=== PATIENT | male | born 1975 | race Two or more races ===

== ENCOUNTER 2021-10-12 18:32 | Emergency (ER) | payer OTHER ==
[~2021-10-12] VITALS: Ht 177.8 cm; Wt 158.8 kg
[2021-10-12] MEDS ORDERED: IRBESARTAN300 MG PO (19:02)
[2021-10-12] MEDS ORDERED: GLIMEPIRIDE4 MG (19:03)
[2021-10-12] MEDS ORDERED: SIMVASTATIN20 MG PO (19:03)
[2021-10-12] MEDS ORDERED: ADALAT CC30 MG PO (19:03)
[2021-10-12] MEDS ORDERED: HORIZANT600 MG PO (19:04)
[2021-10-12] MEDS ORDERED: GLUMETZA1000 MG PO (19:04)
[2021-10-12] MEDS ORDERED: CIPROFLOXA500 MG/5 M PO (19:04)
== END 2021-10-12 23:28 | disposition home or self-care (01) ==
LOC: ER 18:32
DX: N04.9 Nephrotic syndrome with unspecified morphologic changes (principal); R60.1 Generalized edema; E11.9 Type 2 diabetes mellitus without complications; Z79.84 Long term (current) use of oral hypoglycemic drugs